=== PATIENT | female | born 1965 | race Caucasian/White ===

== ENCOUNTER 2025-03-09 19:37 | Emergency (ER) | payer OTHER, SELFPAY ==
[2025-03-09 19:44] VITALS: BP 109/58; PULSE 65; RESP 18; TEMP 37; O2SAT 96; BMI 27.4
[2025-03-09 20:27] LABS: Strep Grp A by PCR Rapid Negative (Negative)
[2025-03-09 20:52] LABS: COVID-19 CEPHEID 4-PLEX PCR Negative (Negative); Influenza A - CEPHEID Flu A NEGATIVE (NEGATIVE); Influenza B - CEPHEID Flu B NEGATIVE (NEGATIVE); Respiratory Syncytial Virus Negative (Negative)
--- NOTE | 2025-03-09 20:56 | DI.RAD.S_ITS ---
PROCEDURE: XR CHEST 1V INDICATIONS: cough TECHNIQUE: One view of the chest was acquired. COMPARISON: None. FINDINGS: Surgical changes and devices: None. Lungs and pleura: Lungs are clear. No pleural effusions or pneumothorax. Mediastinum: Mediastinal contours appear normal. Heart size is normal. Bones and chest wall: No suspicious bony lesions. Overlying soft tissues appear unremarkable. IMPRESSION: No acute cardiopulmonary pathology. Dictated by: Shubham Sotelo M.D. on 03/09/2025 at 21:18 Approved by: Shubham Sotelo M.D. on 03/09/2025 at 21:18
--- NOTE | 2025-03-09 21:48 | ED_ITS ---
HPI - URI/Sore Throat General Chief Complaint: Upper Respiratory Symptoms Stated Complaint: sore throat, cough Time Seen by Provider: 03/09/25 20:56 Source: patient Mode of arrival: Ambulatory History of Present Illness HPI Narrative: 59-year-old female without any significant past medical history presenting for flu-like symptoms ongoing persistent for the past 2 and half weeks, describes it as nasal congestion runny nose as well as cough, she denies any actual chest pain, states that she has been having a mild sore throat more likely secondary to her cough, states that she is here with her who has similar symptoms. She states that she was worried she may have had strep throat because has been was exposed to someone with strep throat. She denies any other symptoms such as nausea vomiting abdominal pain any other GI/ symptoms time. Related Data Previous Rx's Medication Instructions Recorded fluticasone propionate 50 1 spray intranasal Q12H 3 days #16 03/09/25 mcg/actuation nasal grams spray,suspension (Flonase Allergy Relief) Allergies Allergy/AdvReac Type Severity Reaction Status Date / Time No Known Drug Allergies Allergy Verified 03/09/25 19:44 Review of Systems Review of Systems Narrative: General: Denies fever, chills, weight loss HEENT: Positive nasal congestion runny nose Cardiovascular: Denies any chest pain, palpitations, tachycardia Respiratory: Positive cough, denies shortness breath wheeze stridor GI/: Denies any abdominal pain, nausea, vomiting, diarrhea, bright red blood per rectum, melanotic stools, urinary frequency, urinary retention, dysuria, hematuria MSK: Denies any joint pain, muscle pains, swelling Skin: Denies any rashes, lesions, discoloration Neuro: Denies any headache, lightheadedness, dizziness, fainting, weakness Psych: Denies SI/HI Patient History Smoking Status: Never smoker Exam Narrative Exam Narrative: General: Cooperative, well-developed, not in acute distress HEENT: Normocephalic, atraumatic, PERRLA, normal sclera, eyelids normal, nasal congestion noted Neck: Active full range of motion, atraumatic Chest: Normal to inspection, negative crepitus, no overlying erythema ecchymosis Respiratory: Normal respiratory effort, not in acute respiratory distress, clear to auscultation bilaterally negative cough, wheeze, tachypnea, rhonchi, rales Cardiology: Regular rate rhythm negative gallop, murmur, rubs GI/: No tenderness to palpation, soft, non rigid, normal to inspection, exam deferred MSK: Full active range of motion in all 4 extremities, atraumatic, no tenderness to palpation of any bony prominences Skin: No rashes or lesions noted Neuro: Alert awake oriented x3, moves all 4 extremities spontaneously, cranial nerves intact, able to answer all questions appropriately follows commands appropriately Psych: Cooperative, negative suicidal or homicidal ideations Initial Vital Signs Initial Vital Signs: Vital Signs Temperature 98.6 F 03/09/25 19:44 Pulse Rate 65 03/09/25 19:44 Respiratory Rate 18 03/09/25 19:44 Blood Pressure 109/58 L 03/09/25 19:44 Pulse Oximetry 96 03/09/25 19:44 Oxygen Delivery Method Room Air 03/09/25 19:44 Course Orders Ordered: ED Orders 03/09/25 20:00 Covid-19 + FLU A/B + RSV - PCR Stat Strep Grp A by PCR Rapid Stat 03/09/25 20:56 CXR [XR chest 1V] Stat Vital Signs Vital signs: Vital Signs - 8 hr 03/09/25 19:44 Temperature 98.6 F Pulse Rate 65 Respiratory Rate 18 Blood Pressure 109/58 L Pulse Oximetry 96 Oxygen Delivery Method Room Air MDM - URI/Sore Throat Differential Diagnosis Differential diagnosis: Likely upper respiratory infection, sinusitis, viral infection and other (Strep throat) Lab Data Labs: Lab Results 03/09/25 Range/Units 20:00 SARS-CoV-2 (PCR) Negative (Negative) Influenza A (RT-PCR) Flu a negative (NEGATIVE) Influenza B (RT-PCR) Flu b negative (NEGATIVE) RSV (PCR) Negative (Negative) Group A Strep (PCR) Negative (Negative) Imaging Data Chest x-ray: Radiologist's Impression: [address] [address] XRay Report Signed Patient: Melissa Levy MR#: [id number] : 1965 Acct:[id number] Age/Sex: 59 / F Date of Service: 03/09/25 Loc: ED Accession Number: [id number] Procedure: XR chest 1V Ordering Provider: Ambrose Logan D.O. PROCEDURE: XR CHEST 1V INDICATIONS: cough TECHNIQUE: One view of the chest was acquired. COMPARISON: None. FINDINGS: Surgical changes and devices: None. Lungs and pleura: Lungs are clear. No pleural effusions or pneumothorax. Mediastinum: Mediastinal contours appear normal. Heart size is normal. Bones and chest wall: No suspicious bony lesions. Overlying soft tissues appear unremarkable. IMPRESSION: No acute cardiopulmonary pathology. MDM Narrative Medical decision making narrative: 59-year-old female without any significant past medical history presenting for flu-like symptoms ongoing persistent for the past 2-1/2 weeks, has been has similar symptoms, states that they were exposed to possible strep throat therefore wanted to be evaluated, this was negative, viral panel negative for COVID flu RSV, patient had chest x-ray without any acute cardiopulmonary abnormality, patient will be sent home with symptomatic relief, nasal decongestant and albuterol inhaler for her cough and sinus congestion, she is well-appearing nontoxic afebrile not requiring any supplemental oxygen she was given strict return precautions she verbalized understanding of this and agrees to being discharged home with outpatient follow up Discharge Plan Departure Patient Disposition: Home Clinical Impression: Upper respiratory infection Activity Restrictions/Additional Instructions: Please follow up with your primary care doctor Please read the discharge instructions sheet carefully and bring all papers to all doctor follow-up visits, as it may contain information that your doctor may want to see. Disease processes change and evolve, if your symptoms worsen or if you develop any new symptoms that are concerning to you please return for evaluation. Your evaluation today does not show any evidence of any life- threatening/serious illnesses requiring admission to the hospital or surgery. Please follow-up with your doctor for re-evaluation in approximately 1 day. Seek immediate medical attention for any worrisome symptoms. *If you do not have a primary care provider please contact the [facility] Resource line at [phone]. They will ask some questions about your medical history and help get you set up with a doctor in the community. Prescriptions: New fluticasone propionate [Flonase Allergy Relief] 50 mcg/actuation spray,suspension 1 spray intranasal Q12H 3 Days Qty: 16 0RF Rx Instructions: administer into each nostril Referrals: ProviderMiguel [Primary Care Provider] - Stand Alone Forms: Patient Portal/API/Survey
[2025-03-09] MEDS: ALBUTEROL HFA PREPACK 1 BOX MISC (22:03)
[2025-03-09 22:23] VITALS: BP 105/64; PULSE 56; RESP 16; O2SAT 98
== END 2025-03-09 22:15 | disposition home or self-care (01) ==
PROVIDERS: Emergency Provider Student in an Organized Health Care Education/Training Program
DX: J06.9 Acute upper respiratory infection, unspecified (principal)
CPT/HCPCS: 0241U; 71045; 87651; 99281; 99283